=== PATIENT | female | born 1995 | race Caucasian/White ===

== ENCOUNTER 2017-02-07 09:16 | Emergency (ER) | payer BC, MEDICAID ==
--- NOTE | 2017-02-07 11:38 | UC ---
Complaint Female HPI - HPI Summary HPI Summary: 21 female presents with complaints of malodorous vaginal discharge that has been ongoing for the past 2 weeks and has progressively been worsening. She describes the discharge as white, creamy and purulent without itching. Does admit to odor. Admits to dyspareunia but denies post coital bleeding. Admits to some intermittent vague lower abdominal pain that comes and goes for the past couple of years. Denies urinary symptoms and has been going to the bathroom normal. She has been diagnosed with Chlamydia with IUD in place twice in the past. No current control. She is unsure if her current partner has STD's. She is requesting STD testing. She also states she gets BV and yeast infections often however she does not think this is yeast. She does not complain of any itching or irritation. Also states she had a mild non-productive cough that started today. Denies any bleeding, diarrhea, fever/chills, nausea and vomiting. Has never been diagnosed with PID. - History Of Current Complaint Chief Complaint: UCGU Stated Complaint: COUGH CONGESTION/PERSONAL Time Seen by Provider: 02/07/17 10:13 Hx Obtained From: Patient Hx Last Menstrual Period: 01/14/17, due for next period in 3 days, neg preg ?: No Onset/Duration: Sudden Onset Timing: Constant Severity Initially: Mild Severity Currently: Moderate Pain Intensity: 2 Pain Scale Used: 0-10 Numeric Character: Cramping Aggravating Factor(s): Movement, Leyner Alleviating Factor(s): Nothing Associated Signs And Symptoms: Positive: Vaginal Discharge. Negative: Fever, Back Pain, Nausea, Vomiting(# Of Episodes =), Genital Swelling, Genital Blisters Related Hx: Prior STD Hx - Risk Factors Ectopic Risk Factor: IUD Use - Allergies/Home Medications Allergies/Adverse Reactions: Allergies Allergy/AdvReac Type Severity Reaction Status Date / Time No Known Allergies Allergy Verified 02/07/17 09:56 PMH/Surg Hx/FS Hx/Imm Hx Cardiovascular History Of: Reports: Cardiac Disorders - MURMER,BENIGN Respiratory History Of: Reports: Bronchitis - Hx OF LAST x WAS 2013 GI/ History Of: Reports: Kidney Stones - BILATERAL, STD history -Chlamydia Psychological History Of: Comment Only: Anxiety - on celexa, Depression - on celexa - Surgical History Surgical History: Yes Surgery Procedure, Year, and Place: RIGHT KNEE SURGERY/REPAIR 2013, left great toe granuloma removed 08/25/14. lithotripsy; bladder 2016 - Family History Known Family History: Positive: Unknown - Social History Alcohol Use: Occasionally Alcohol Amount: weekends Substance Use Type: Marijuana Substance Use Comment - Amount & Last Used: MARIJUANA VERY RARE Smoking Status (MU): Light Every Day Tobacco Smoker Type: Cigarettes Amount Used/How Often: 1/2 PPD FOR 2 MONTHS Length of Time of Smoking/Using Tobacco: 2 MONTHS Have You Smoked in the Last Year: No Household Exposure Type: Cigarettes - Immunization History Vaccination Up to Date: Yes Review of Systems Constitutional: Negative Skin: Negative Eyes: Negative ENT: Negative Respiratory: Cough Cardiovascular: Negative Gastrointestinal: Abdominal Pain Genitourinary: Other - vaginal discharge Motor: Negative Neurovascular: Negative Musculoskeletal: Negative Neurological: Negative Psychological: Negative All Other Systems Reviewed And Are Negative: Yes Physical Exam Triage Information Reviewed: Yes Appearance: Well-Appearing, No Pain Distress, Well-Nourished Vital Signs: Initial Vital Signs Temp 98.9 F 02/07/17 09:41 Pulse 77 02/07/17 09:41 Resp 20 02/07/17 09:41 BP 124/66 02/07/17 09:41 Pulse Ox 99 02/07/17 09:41 Vital Signs Reviewed: Yes Eyes: Positive: Conjunctiva Clear ENT: Positive: Normal ENT inspection, Hearing grossly normal, Pharynx normal, TMs normal Dental: Negative: Cervical Lymphadenopathy Neck: Positive: Supple, Nontender, No Lymphadenopathy Respiratory: Positive: Chest non-tender, Lungs clear, Normal breath sounds, No respiratory distress, No accessory muscle use. Negative: Respiratory distress, Crackles, Rhonchi, Stridor Cardiovascular: Positive: RRR, No Murmur, Pulses Normal, Brisk Capillary Refill Abdomen Description: Positive: No Organomegaly, Soft, Other: - mild tenderness over uterus/bladder intermittently on palpation. Negative: Bruit, CVA Tenderness (R), CVA Tenderness (L), Distended, Guarding, Peritoneal Signs, Pulsatile Mass Bowel Sounds: Positive: Present Musculoskeletal Exam: Normal Musculoskeletal: Positive: Strength Intact, ROM Intact, No Edema Neurological Exam: Normal Neurological: Positive: Alert Psychological Exam: Normal Skin Exam: Normal UC Physical Exam Vital Signs On Initial Exam: Initial Vitals Temp Pulse Resp BP Pulse Ox 98.9 F 77 20 124/66 99 02/07/17 09:41 02/07/17 09:41 02/07/17 09:41 02/07/17 09:41 02/07/17 09:41 - Genitalia Exam Female Genitourinary: Normal External Exam, Genitalia without Lesions/Masses, Other - vaginal canal with white/yellow mucopurluent discharge, creamy in texture, no odor noted. does not appear to be jade. wall and cervix without erythema. negative strawberry cervix. no cervical motion tenderness. cervix appeared to be slightly open with blood noted, patient is due for menstraul cycle in 3 days. No blood noted otherwise. No adenexal or uterine tenderness on bimanual exam. Complaint Female Dx - Course Course Of Treatment: pelvic exam preformed, STD and Affirm/Trich cultures obtained. Patient did not want blood work at this time and agreed to have complete STD testing and [facility]. Discussed possibility of STD versus BV. Discussed options of waiting for results versus treatment at visit. Agreed to treat for BV at this time and wait for culture results for further/ change of treatment. Patient was educated on resistance to antibiotics for STDs. test obtained and negative. Urinalysis obtained and showed nitrate and blood. Without complaint of symptoms and trace amounts of blood/nitrate will not treat for UTI at this time. Flagyl prescribed and close follow up with OBGYN. No intercorse until symptoms improve and treatment is complete. Will call with culture results when obtained. Spoke with Dr Knutson about treatment plan who agreed. - Differential Dx/Diagnosis Differential Diagnosis/HQI/PQRI: Pelvic Inflammatory Disease, , Sexually Transmitted Disease, Urinary Tract Infection, Other - BV, jade Provider Diagnoses: bacterial vaginosis, vaginal discharge - Physician Notifications Discussed Patient Care With: Dr Knutson Discharge - Discharge Plan Condition: Good Disposition: HOME Prescriptions: Metronidazole [Flagyl 500 MG TAB] 500 mg PO BID #14 tab Patient Education Materials: Bacterial Vaginosis (ED), Sexually Transmitted Diseases (ED) Referrals: Silvia Alvarez MD [Primary Care Provider] - Additional Instructions: Take prescribed medication as directed for the next 7 days. You will hear about culture results in the next couple of days. Depending on results treatment may need to be adjusted or additional treatment will be necessary. While take antibiotic, recommend taking probiotics in between doses. Be sure to keep your appointment with OBGYN for further evaluation, blood work and follow up. If symptoms persist, worsen or do not improve please return or seek medical attention promptly. Avoid sexual intercourse until culture results are obtained and symptoms have improved.
[2017-02-07 12:09] VITALS: BP 114/70
== END 2017-02-07 11:46 | disposition home or self-care (01) ==
LOC: UCCORT 09:16
DX: N76.0 Acute vaginitis (principal); Z32.02 Encounter for pregnancy test, result negative; R01.0 Benign and innocent cardiac murmurs; F41.8 Other specified anxiety disorders; Z11.3 Encounter for screening for infections with a predominantly sexual mode of transmission; Z87.442 Personal history of urinary calculi; F17.210 Nicotine dependence, cigarettes, uncomplicated
CPT/HCPCS: 81003; 84702; 87086; 87480; 87491; 87510; 87591; 87661; 99212; G0463

== ENCOUNTER 2018-03-12 16:59 | Emergency (ER) | payer BC, MEDICAID ==
[2018-03-12 18:08] VITALS: BP 114/65
--- NOTE | 2018-03-12 18:35 | ED ---
GI/ HPI - HPI Summary HPI Summary: 22 yr old female with the complaint of late period and occasional midline cramping. She states she had a period where she bled for more days than usual last month. It ended on February 13. She had been taking oral contraceptives in january for a few weeks only and then stopped them. She usually does not take the pills. Presently she is comfortable and not having pain. No vaginal discharge or bleeding now. She actually feels like she does prior to getting her period. She was afraid she was late for period since she began bleeding February 02 last period but bled late she states almost to February 13. The patient states she has taken three home tests this week that have all been negative. She is 4 years ago. - History of Current Complaint Chief Complaint: UCGU Time Seen by Provider: 03/12/18 18:10 Stated Complaint: ABDOMINAL COMPLAINT Hx Last Menstrual Period: 01/14/17, due for next period in 3 days, neg preg Pain Intensity: 3 - Allergy/Home Medications Allergies/Adverse Reactions: Allergies Allergy/AdvReac Type Severity Reaction Status Date / Time No Known Allergies Allergy Verified 02/07/17 09:56 Home Medications: Home Medications Ibuprofen TAB* [Motrin TAB* 800 MG] 800 mg PO Q6H PRN 03/12/18 [History Confirmed 03/12/18] PMH/Surg Hx/FS Hx/Imm Hx GI History: Reports: Hx Gastroesophageal Reflux Disease - ACID REFLUX CONTROL WITH MEDS History: Reports: Hx Kidney Stones - BILATERAL, STD history -Chlamydia Sensory History: Denies: Hx Contacts or Glasses, Hx Hearing Aid Opthamlomology History: Denies: Hx Contacts or Glasses Psychiatric History: Comment Only: Hx Anxiety - on celexa, Hx Depression - on celexa - Surgical History Surgery Procedure, Year, and Place: RIGHT KNEE SURGERY/REPAIR 2013, left great toe granuloma removed 08/25/14. lithotripsy; bladder 2016. uterine sx Hx Anesthesia Reactions: No Infectious Disease History: Yes Infectious Disease History: Reports: Hx Shingles Denies: Traveled Outside the [place] in Last 30 Days - Family History Known Family History: Positive: Unknown - Social History Alcohol Use: Occasionally Alcohol Amount: weekends Substance Use Type: Reports: Marijuana Substance Use Comment - Amount & Last Used: MARIJUANA VERY RARE Smoking Status (MU): Light Every Day Tobacco Smoker Type: Cigarettes Amount Used/How Often: 1 PPD FOR 2 MONTHS Length of Time of Smoking/Using Tobacco: 2 yrs Have You Smoked in the Last Year: No Review of Systems Constitutional: Negative Negative: Vomiting, Diarrhea, Nausea Positive: other - period off, and some cramping. . Negative: dysuria All Other Systems Reviewed And Are Negative: Yes Physical Exam Triage Information Reviewed: Yes Vital Signs On Initial Exam: Initial Vitals Temp Pulse Resp BP Pulse Ox 99.6 F 73 16 114/65 100 03/12/18 18:00 03/12/18 18:00 03/12/18 18:00 03/12/18 18:00 03/12/18 18:00 Vital Signs Reviewed: Yes Appearance: Positive: Well-Appearing Skin: Positive: Warm, Skin Color Reflects Adequate Perfusion Head/Face: Positive: Normal Head/Face Inspection Eyes: Positive: EOMI ENT: Positive: Normal ENT inspection Neck: Positive: Nontender Respiratory/Lung Sounds: Positive: Clear to Auscultation, Breath Sounds Present Cardiovascular: Positive: RRR. Negative: Murmur Abdomen Description: Positive: Nontender, Soft. Negative: Distended, Guarding Musculoskeletal: Positive: Strength/ROM Intact Neurological: Positive: Sensory/Motor Intact, Alert, Oriented to Person Place, Time, CN Intact II-III Psychiatric: Positive: Normal - Sury Coma Scale Best Eye Response: 4 - Spontaneous Best Motor Response: 6 - Obeys Commands Best Verbal Response: 5 - Oriented Coma Scale Total: 15 Diagnostics - Vital Signs Vital Signs Temp Pulse Resp BP Pulse Ox 03/12/18 18:00 99.6 F 73 16 114/65 100 - Laboratory Lab Results: Lab Results 03/12/18 03/12/18 Range/Units 18:14 18:16 POC Urine Color Yellow POC Urine Clarity Clear POC Urine pH 7.0 (5-9) POC Ur Specif [place] 1.015 (1.010-1.030) POC Urine Protein Negative (Negative) POC Ur Glucose (UA) Negative (Negative) POC Urine Ketones Negative (Negative) POC Urine Blood Negative (Negative) POC Urine Nitrite Negative (Negative) POC Urine Bilirubin Negative (Negative) POC Urine Urobilinogen 0.2 (Negative) POC U Leukocyte Esteras Negative (Negative) POC Ur Test Negative (Negative) Lab Statement: Any lab studies that have been ordered have been reviewed, and results considered in the medical decision making process. GIGU Course/Dx - Course Course Of Treatment: 22 yr old female with period that seems to have been thrown out of sync by taking oral contaceptives irregularly and suddenly stopping them in January. She is comfortable now. recommend she contact her STOCK PLAN ADMINISTRATOR in the morning for follow up. Her HCG and UA are negativehere. She has a benign abdomen on exam. - Diagnoses Provider Diagnoses: Menstrual period late Discharge - Sign-Out/Discharge Documenting (check all that apply): Discharge/Admit/Transfer - Discharge Plan Condition: Good Disposition: HOME Patient Education Materials: Abdominal Pain (ED) Referrals: SORAYA Rojas [Primary Care Provider] - Additional Instructions: You should go to the ER for any fever, chills, pain, new symptoms, further delay of period. You should contact your STOCK PLAN ADMINISTRATOR tomorrow to be seen in follow up as soon as possible for your late/delayed period. - Billing Disposition and Condition Condition: GOOD Disposition: Home
== END 2018-03-12 18:47 | disposition home or self-care (01) ==
LOC: UCCORT 16:59
DX: N92.5 Other specified irregular menstruation (principal); R25.2 Cramp and spasm; F17.210 Nicotine dependence, cigarettes, uncomplicated
CPT/HCPCS: 81003; 84702; 99211; G0463

== ENCOUNTER 2018-06-21 20:10 | Emergency (ER) | payer BC, MEDICAID ==
[2018-06-21 20:29] VITALS: BP 113/70
--- NOTE | 2018-06-21 20:57 | UC ---
Complaint Female HPI - HPI Summary HPI Summary: patient reports 3 months of worsening vaginal odor and discharge states she frequently gets BV - History Of Current Complaint Chief Complaint: UCGU Stated Complaint: PERSONAL Time Seen by Provider: 06/21/18 20:35 Hx Obtained From: Patient Hx Last Menstrual Period: 05/20/18, ending 06/03/18 ?: No Onset/Duration: Gradual Onset, Lasting Weeks - 12, Still Present Timing: Constant Pain Intensity: 1 Pain Scale Used: 0-10 Numeric Aggravating Factor(s): Nothing Alleviating Factor(s): Nothing Associated Signs And Symptoms: Positive: Vaginal Discharge. Negative: Nausea, Vomiting(# Of Episodes =), Genital Swelling, Genital Blisters, Retained Foregin Body (Specify) Related Hx: - 1, Para - 1 - Allergies/Home Medications Allergies/Adverse Reactions: Allergies Allergy/AdvReac Type Severity Reaction Status Date / Time No Known Allergies Allergy Verified 02/07/17 09:56 Home Medications: Home Medications Naproxen Sodium [Aleve] 440 mg PO DAILY PRN 06/21/18 [History Confirmed 06/21/18 ] l-Norgest/E.estradiol-E.estrad [Ashlyna 0.15-0.03-0.01 mg Tab] 1 tab PO DAILY [History Confirmed 06/21/18] PMH/Surg Hx/FS Hx/Imm Hx Previously Healthy: Yes - Surgical History Surgical History: Yes Surgery Procedure, Year, and Place: RIGHT KNEE SURGERY/REPAIR 2013, left great toe granuloma removed 08/25/14. lithotripsy; bladder 2015. uterine sx - Family History Known Family History: Positive: Unknown - Social History Occupation: Works From/At Home Lives: With Family Alcohol Use: Occasionally Alcohol Amount: weekends Substance Use Type: Marijuana Substance Use Comment - Amount & Last Used: MARIJUANA VERY RARE Smoking Status (MU): Light Every Day Tobacco Smoker Type: Cigarettes Amount Used/How Often: 1 ppd Length of Time of Smoking/Using Tobacco: 2 yrs Have You Smoked in the Last Year: No Household Exposure Type: Cigarettes - Immunization History Vaccination Up to Date: Yes Review of Systems Constitutional: Negative Skin: Negative Eyes: Negative ENT: Negative Respiratory: Negative Cardiovascular: Negative Gastrointestinal: Negative Genitourinary: Vaginal/Penile Discharge Motor: Negative Neurovascular: Negative Musculoskeletal: Negative Neurological: Negative Psychological: Negative Is Patient Immunocompromised?: No All Other Systems Reviewed And Are Negative: Yes Physical Exam Triage Information Reviewed: Yes Appearance: Well-Appearing, No Pain Distress, Well-Nourished Vital Signs: Initial Vital Signs Temp 98.8 F 06/21/18 20:20 Pulse 72 06/21/18 20:20 Resp 20 06/21/18 20:20 BP 113/70 06/21/18 20:20 Pulse Ox 99 06/21/18 20:20 Vital Signs Reviewed: Yes Eye Exam: Normal Eyes: Positive: Conjunctiva Clear ENT Exam: Normal ENT: Positive: Normal ENT inspection, Hearing grossly normal. Negative: Trismus , Muffled voice, Hoarse voice Dental Exam: Normal Neck exam: Normal Neck: Positive: Supple, Nontender Respiratory Exam: Normal Respiratory: Positive: Chest non-tender, No respiratory distress, No accessory muscle use Cardiovascular Exam: Normal Cardiovascular: Positive: RRR, Pulses Normal, Brisk Capillary Refill Abdominal Exam: Normal Abdomen Description: Positive: Nontender, No Organomegaly, Soft. Negative: CVA Tenderness (R), McBurney's Point Tenderness, Peritoneal Signs Bowel Sounds: Positive: Present Pelvic Exam: Positive: External Exam Normal, Speculum Exam Normal, No Cerv. Motion Tender, No Masses, Discharge - thick white. Negative: Tender w/ Cervical Motion, Tender Adnexa, Tender Uterus Musculoskeletal Exam: Normal Musculoskeletal: Positive: Strength Intact, ROM Intact, No Edema Neurological Exam: Normal Neurological: Positive: Alert, Muscle Tone Normal Psychological Exam: Normal Skin Exam: Normal Complaint Female Dx - Course Course Of Treatment: lab studies for STD screening--flagyl and 1 diflucan to use prn, follow with pcp - Differential Dx/Diagnosis Provider Diagnoses: BV, STD screening, nicotine dependant Discharge - Sign-Out/Discharge Documenting (check all that apply): Patient Departure All imaging exams completed and their final reports reviewed: No Studies - Discharge Plan Condition: Stable Disposition: HOME Prescriptions: Fluconazole [Diflucan 150 MG (NF)] 150 mg PO ONCE #1 tab metroNIDAZOLE [Flagyl] 500 mg PO BID #13 tablet Patient Education Materials: Bacterial Vaginosis (ED) Referrals: SORAYA Rojas [Medical Doctor] - If Needed - Billing Disposition and Condition Condition: STABLE Disposition: Home
[2018-06-21] MEDS ORDERED: metroNIDAZOLE TAB* 250 MG PO ONE (21:17)
--- NOTE | 2018-06-23 08:07 | UC ---
- Progress Note Progress Note: RN to call pt re results as available this morning, including Not Immune Hep B surf AB. F/u PCP this week. Seek medical attention for worse or new problems in the meantime. Discharge - Sign-Out/Discharge Documenting (check all that apply): Post-Discharge Follow Up All imaging exams completed and their final reports reviewed: No Studies - Discharge Plan Condition: Stable Disposition: HOME Prescriptions: Fluconazole [Diflucan 150 MG (NF)] 150 mg PO ONCE #1 tab metroNIDAZOLE [Flagyl] 500 mg PO BID #13 tablet Patient Education Materials: Bacterial Vaginosis (ED) Referrals: SORAYA Rojas [Medical Doctor] - If Needed - Billing Disposition and Condition Condition: STABLE Disposition: Home
== END 2018-06-21 21:42 | disposition home or self-care (01) ==
LOC: UCCORT 20:10
CPT/HCPCS: 36415; 81003; 84702; 86592; 86703; 86706; 86803; 87480; 87491; 87510; 87591; 87661; 99212; A9270-GY; G0463

== ENCOUNTER 2018-07-13 10:41 | Emergency (ER) | payer BC, MEDICAID ==
--- NOTE | 2018-07-15 12:59 | UC ---
Discharge - Sign-Out/Discharge Documenting (check all that apply): Post-Discharge Follow Up All imaging exams completed and their final reports reviewed: No Studies - Discharge Plan Disposition: LEFT WITHOUT BEING SEEN Referrals: No Primary Care Phys,NOPCP [Primary Care Provider] - - Billing Disposition and Condition Disposition: Left Without Being Seen
== END 2018-07-13 11:38 | disposition left against medical advice (07) ==
LOC: UCCORT 10:41
DX: L98.9 Disorder of the skin and subcutaneous tissue, unspecified (principal); Z53.21 Procedure and treatment not carried out due to patient leaving prior to being seen by health care provider

== ENCOUNTER 2018-08-04 13:14 | Emergency (ER) | payer BC, MEDICAID ==
[2018-08-04 13:57] VITALS: BP 127/69
[2018-08-04] MEDS ORDERED: Albuterol 2.5 MG/3 ML NEB.SOL* (0.083%) INH ONE (14:27)
--- NOTE | 2018-08-04 14:27 | UC ---
UC General HPI - HPI Summary HPI Summary: pt c/o a 6 week hx cough, chest congestion and wheezing. began as a cold but now feels much worse. no hx asthma or fever but feels fatigued and low energy. cough worse at night. + smoker. also c/o a red circular rash to L inner ankle that is very itchy and was scaley at onset. rash x 3 months. she has self tx with clortrimazole, peroxide, alcohol, neosporin and lotions with no relief - History of Current Complaint Chief Complaint: UCRespiratory Stated Complaint: COUGH, CHEST CONGESTION Time Seen by Provider: 08/04/18 14:16 Hx Obtained From: Patient Hx Last Menstrual Period: 3 weeks ago Pain Intensity: 0 Associated Signs & Symptoms: Positive: Cough, SOB, Wheezing. Negative: Chest Pain, Fever - Allergy/Home Medications Allergies/Adverse Reactions: Allergies Allergy/AdvReac Type Severity Reaction Status Date / Time No Known Allergies Allergy Verified 08/04/18 13:50 Home Medications: Home Medications Acetaminophen [Acetaminophen Extra Strength] 1,000 mg PO Q4H PRN 08/04/18 [ History Confirmed 08/04/18] PMH/Surg Hx/FS Hx/Imm Hx Psychological History: Anxiety, Depression - Surgical History Surgical History: Yes Surgery Procedure, Year, and Place: RIGHT KNEE SURGERY/REPAIR 2013, left great toe granuloma removed 08/25/14. lithotripsy; bladder 2016. uterine sx - Family History Known Family History: Positive: Unknown - Social History Occupation: Employed Full-time Alcohol Use: Occasionally Alcohol Amount: weekends Substance Use Type: Marijuana Substance Use Comment - Amount & Last Used: daily Smoking Status (MU): Heavy Every Day Tobacco Smoker Type: Cigarettes Amount Used/How Often: 1 ppd Length of Time of Smoking/Using Tobacco: 2 yrs Have You Smoked in the Last Year: No Household Exposure Type: Cigarettes - Immunization History Vaccination Up to Date: Yes Review of Systems Constitutional: Negative Skin: Rash Eyes: Negative ENT: Negative Respiratory: Shortness Of Breath, Cough Cardiovascular: Negative Gastrointestinal: Negative Genitourinary: Negative Motor: Negative Neurovascular: Negative Musculoskeletal: Negative Neurological: Negative Psychological: Negative Is Patient Immunocompromised?: No All Other Systems Reviewed And Are Negative: Yes Physical Exam Triage Information Reviewed: Yes Appearance: Well-Appearing Vital Signs: Initial Vital Signs Temp 98.5 F 08/04/18 13:52 Pulse 72 08/04/18 13:52 Resp 18 08/04/18 13:52 BP 127/69 08/04/18 13:52 Pulse Ox 98 08/04/18 13:52 Vital Signs Reviewed: Yes Eyes: Positive: Conjunctiva Clear ENT: Positive: Pharynx normal, TMs normal. Negative: Nasal congestion, Nasal drainage Neck: Positive: Supple, Nontender, No Lymphadenopathy Respiratory: Positive: No respiratory distress, Decreased breath sounds, Wheezing Cardiovascular: Positive: RRR, No Murmur Abdomen Description: Positive: Nontender, No Organomegaly, Soft Bowel Sounds: Positive: Present Musculoskeletal: Positive: ROM Intact, No Edema Neurological: Positive: Alert Psychological: Positive: Age Appropriate Behavior Skin Exam: Normal, Other - 6cm circular red rash L inner ankle area with scaling on edges. Diagnostics - Radiology No standard instances Radiology Interpretation Completed By: Radiologist - cxr=NO ACTIVE CARDIOPULMONARY DISEASE. Re-Evaluation - Re-Evaluation First Eval Re-Evaluation Time: 15:02 Change: Improved - no wheezing post tx. Course/Dx - Course Course Of Treatment: rash c/w tinea, no concern for secondary bacterial infection. cxr=nad - Differential Dx - Multi-Symptom Provider Diagnoses: Tinea corporis L ankle area. Bronchitis Discharge - Sign-Out/Discharge Documenting (check all that apply): Patient Departure All imaging exams completed and their final reports reviewed: Yes - Discharge Plan Condition: Stable Disposition: HOME Prescriptions: Albuterol HFA INHALER* [Ventolin HFA Inhaler*] 2 puff INH Q6H #1 mdi Ketoconazole 2 % CREAM (NF) [Nizoral 2% CREAM (NF)] 1 applic TOPICAL BID 30 Days #60 gm predniSONE [Prednisone 20 MG TAB] 40 mg PO DAILY 3 Days #6 tablet Patient Education Materials: Acute Bronchitis (ED), Skin Yeast Infection (ED) Referrals: Rashad Pedroza PA [Primary Care Provider] - 7 Days - Billing Disposition and Condition Condition: STABLE Disposition: Home - Attestation Statements Provider Attestation: Per institutional requirements, I have reviewed the chart, however, I was not consulted specifically or made aware of this patient by the midlevel provider. I did not personally evaluate, interact with , or disposition this patient.
--- NOTE | 2018-08-04 14:51 | RAD ---
HISTORY: 6 weeks, sob, cough COMPARISONS: None VIEWS: 4: Frontal dual-energy and lateral views of the chest. FINDINGS: CARDIOMEDIASTINAL SILHOUETTE: The cardiomediastinal silhouette is normal. FRANK: The frank are normal. PLEURA: The costophrenic angles are sharp. No pleural abnormalities are noted. LUNG PARENCHYMA: The lungs are clear. ABDOMEN: The upper abdomen is clear. There is no subphrenic gas. BONES AND SOFT TISSUES: No bone or soft tissue abnormalities are noted. OTHER: None. IMPRESSION: NO ACTIVE CARDIOPULMONARY DISEASE.
== END 2018-08-04 15:10 | disposition home or self-care (01) ==
LOC: UCCORT 13:14
DX: J40 Bronchitis, not specified as acute or chronic (principal); B35.4 Tinea corporis; F17.210 Nicotine dependence, cigarettes, uncomplicated
CPT/HCPCS: 71046; 99212; G0463

== ENCOUNTER 2018-12-25 14:11 | Emergency (ER) | payer BC, MEDICAID ==
[2018-12-25 14:47] VITALS: BP 123/66
--- NOTE | 2018-12-25 14:59 | UC ---
Ear Complaint HPI - HPI Summary HPI Summary: Pt presents with c/o sudden onset of left ear pain and discharge X 2 days. - History of Current Complaint Chief Complaint: UCEar Stated Complaint: LEFT EAR CONCERN Time Seen by Provider: 12/25/18 14:53 Hx Obtained From: Patient Hx Last Menstrual Period: 3 weeks ago ?: Yes Onset/Duration: Sudden Onset, Lasting Days, Still Present Severity Initially: Mild Severity Currently: Moderate Pain Intensity: 7 Associated Signs/Symptoms: Positive: Discharge, Hearing Loss, URI Symptoms - Allergies/Home Medications Allergies/Adverse Reactions: Allergies Allergy/AdvReac Type Severity Reaction Status Date / Time No Known Allergies Allergy Verified 12/25/18 14:36 Home Medications: Home Medications Acetaminophen PED LIQ* [Tylenol PED LIQ UDC*] 15 mg PO Q6H PRN 12/25/18 [ History Confirmed 12/25/18] Citalopram TAB* [Celexa TAB*] 20 mg PO DAILY 12/25/18 [History Confirmed ] PMH/Surg Hx/FS Hx/Imm Hx Previously Healthy: Yes - Surgical History Surgical History: Yes Surgery Procedure, Year, and Place: RIGHT KNEE SURGERY/REPAIR 2013, left great toe granuloma removed 08/25/14. lithotripsy; bladder 2016. uterine sx - Family History Known Family History: Positive: Unknown - Social History Occupation: Employed Full-time Lives: With Family Alcohol Use: None Alcohol Amount: weekends Substance Use Type: Marijuana Substance Use Comment - Amount & Last Used: hx of Smoking Status (MU): Former Smoker Type: Cigarettes Amount Used/How Often: 1 ppd Length of Time of Smoking/Using Tobacco: 2 yrs Have You Smoked in the Last Year: No When Did the Patient Quit Smoking/Using Tobacco: 16 wks ago Household Exposure Type: Cigarettes - Immunization History Vaccination Up to Date: Yes Review of Systems All Other Systems Reviewed And Are Negative: Yes Constitutional: Positive: Negative Skin: Positive: Negative Eyes: Positive: Negative ENT: Positive: Ear Ache, Sinus Congestion Respiratory: Positive: Cough Cardiovascular: Positive: Negative Gastrointestinal: Positive: Negative Genitourinary: Positive: Negative Motor: Positive: Negative Neurovascular: Positive: Negative Musculoskeletal: Positive: Negative Neurological: Positive: Negative Psychological: Positive: Negative Is Patient Immunocompromised?: No Physical Exam Triage Information Reviewed: Yes Appearance: Well-Appearing Vital Signs: Initial Vital Signs Temp 98.5 F 03/22/19 14:40 Pulse 81 12/25/18 14:40 Resp 18 12/25/18 14:40 BP 123/66 12/25/18 14:40 Pulse Ox 100 12/25/18 14:40 Vital Signs Reviewed: Yes Eye Exam: Normal ENT: Positive: TM bulging - left with serous drainage in ear canal Dental Exam: Normal Neck exam: Normal Respiratory Exam: Normal Cardiovascular Exam: Normal Musculoskeletal Exam: Normal Neurological Exam: Normal Psychological Exam: Normal Skin Exam: Normal Ear Complaint Course/Dx - Differential Dx/Diagnosis Differential Diagnosis/HQI/PQRI: Otitis Media, URI Provider Diagnosis: Otitis media of left ear Discharge - Sign-Out/Discharge Documenting (check all that apply): Patient Departure All imaging exams completed and their final reports reviewed: No Studies - Discharge Plan Condition: Stable Disposition: HOME Prescriptions: Acetaminophen TAB* [Tylenol TAB*] 650 mg PO Q6H PRN #28 tab PRN Reason: Pain Amoxicillin PO (*) [Amoxicillin 500 MG CAP*] 500 mg PO Q12H #20 cap Patient Education Materials: Ear Infection (ED) Referrals: Venice Calvert MD [Primary Care Provider] - If Needed - Billing Disposition and Condition Condition: STABLE Disposition: Home
== END 2018-12-25 15:05 | disposition home or self-care (01) ==
LOC: UCCORT 14:11
DX: H66.92 Otitis media, unspecified, left ear (principal); Z87.891 Personal history of nicotine dependence
CPT/HCPCS: 99212; G0463

== ENCOUNTER 2019-07-27 10:50 | Emergency (ER) | payer BC, MEDICAID ==
--- OUTSIDE RECORDS SUMMARY | 2019-07-27 11:21 | XMS REPORT | Continuity of Care Document ---
:1995 External Reference #:[id number] Author Name Ellen Arce MD, PHD Address [address] [place] [address], [address] [place] [id number] Care Team Providers Name Role Phone Ellen Arce MD, PHD - Family Care Team Information Outbound Sales Consultant Medicine Problems Active Problems Provider Date Arthralgia of the lower leg Malcom Mckee MD Onset: 06/19/2011 Aftercare, Orthopedic Other Tylor Nevarez, D.O. Onset: 08/16/2014 Closed traumatic dislocation of Magdaleno Kendall M.D. Onset: 08/11/2015 patellofemoral joint Chondromalacia of patella Magdaleno Kendall M.D. Onset: 08/29/2015 Gestation period, 35 weeks Ellen Arce MD, PHD Onset: 04/13/2019 Tobacco user Ellen Arce MD, PHD Onset: 04/13/2019 Moderate recurrent major depression Ellen Arce MD, PHD Onset: 2018 Anxiety state Ellen Arce MD, PHD Onset: 04/13/2019 36 weeks gestation of Ellen Arce MD, PHD Onset: 04/20/2019 Herpesviral vesicular dermatitis Ellen Arce MD, PHD Onset: 07/06/2019 Unspecified disorders of Ellen Arce MD, PHD Onset: 07/06/2019 Encounter for routine follow-up Ellen Arce MD, PHD Onset: Long-term current use of hormonal Ellen Arce MD, PHD Onset: 07/06/2019 contraceptive Headache Ellen Arce MD, PHD Onset: 07/06/2019 Social History Type Date Description Comments Sex Unknown Tobacco Use Start: Unknown Never Smoked Cigarettes Smoking Status Reviewed: 07/06/19 Never Smoked Cigarettes ETOH Use Denies alcohol use Tobacco Use Start: Unknown quit 2 weeks ago Recreational Drug Use Current Drug User Allergies, Adverse Reactions, Alerts Active Allergies Reaction Severity Comments Date No Known Drug Allergy 06/19/2011 Medications Active Medications SIG Qnty Indications Ordering Date Provider L-Lysine 1 by mouth every 90caps [place], 07/06/2019 500mg day MD Ellen, Capsules PHD Citalopram 1.5 by mouth every 120tabs [place], 07/06/2019 Hydrobromide day MD Ellen, 20mg PHD Tablets Buspirone HCL 1/2-1 tab by mouth 90tabs F41.9 [place], 07/06/2019 10mg three times a day MD Ellen, Tablets after meals as PHD needed Prenaissance Plus 2 tab by mouth 180caps Z39.2 [place], 07/06/2019 every day MD Ellen, 28-1-250mg Capsules PHD Breast Pump to use every 2-4 1units [place], 05/28/2019 Misc hours as needed. MD Ellen, PHD Docusate Sodium 1 cap by mouth 60caps K59.00 [place], 03/10/2019 100mg twice a day MD Ellen, Capsules constipation PHD D3 Maximum Strength 1 cap by mouth 90caps F41.9 [place], 02/24/2019 every day with food MD Ellen, 5000Unit Capsules PHD B12 Fast Dissolve 1 tab by mouth 90tabs F41.9 [place], 02/24/2019 every day MD Ellen, 5000mcg Tablets PHD Dispers Acetaminophen Extra 2 tablets by mouth Unknown Strength every 4 hours as 500mg needed Tablets History Medications Citalopram 2 by mouth every 60tabs Ellen Arce, 06/08/2019 - Hydrobromide vamsi LARA, PHD 07/06/2019 20mg Tablets Amoxicillin 1 tab by mouth 14caps J02.0 Ellen Arce, 03/10/2019 - 500mg twice a day , PHD Unknown Capsules Silvadene apply to affected 25gm Ellen Arce, 02/26/2019 - 1% Cream area every day as , PHD 07/06/2019 needed Nac 600 1 cap by mouth 90caps F41.9 Ellen Arce, 02/24/2019 - 600mg Capsules three times a day , PHD 07/06/2019 after meals Immunizations CPT Code Status Date Vaccine Lot # [id number] Given 07/06/2019 Influenza Virus Vaccine, Quadrivalent, 36 Mos+, [id number] Given 03/30/2019 Tdap injection [id number] Given 02/24/2019 Rho(D) Immune Globulin (Human) [id number] Vital Signs Date Vital Result Comment 07/06/2019 1:00pm BP Systolic 116 mmHg BP Diastolic 80 mmHg Body Temperature 97.5 F Heart Rate 82 /min Respiratory Rate 16 /min Height 67 inches 5'7" Weight 180.00 lb BMI (Body Mass Index) 28.2 kg/m2 BSA (Body Surface Area) 1.93 m2 [place] body weight in kilograms 61 kg O2 % BldC Oximetry 98 % 06/08/2019 2:13pm BP Systolic 124 mmHg BP Diastolic 85 mmHg Body Temperature 98.9 F Heart Rate 91 /min Respiratory Rate 16 /min Height 67 inches 5'7" Weight 178.00 lb BMI (Body Mass Index) 27.9 kg/m2 BSA (Body Surface Area) 1.92 m2 [place] body weight in kilograms 61 kg O2 % BldC Oximetry 97 % Results Test Date Facility Test Result H/L Range Note Urine Culture 06/08/2019 [facility] Urine Culture URETHRAL ESME [address] [place] [address] [phone] Quantity 10,000 - 50,000 <SEE NOTE> 2 Ua RFX Micro & Culture 06/08/2019 [facility] Urine Color YELLOW Yellow II [address] [place] [address] [phone] Urine Clarity CLEAR Clear Urine Glucose - Dipstick NEGATIVE mg/dL Negative Urine Bilirubin - Dipstick NEGATIVE Negative Urine Ketone NEGATIVE mg/dL Negative Urine Specific [place] 1.010 Normal 1.010-1.030 Urine Blood LARGE Abnormal 0-2 Urine PH 6.0 Low 6.5-7.5 Urine Protein - Dipstick NEGATIVE mg/dL Negative Urine Urobilinogen - Dipstick 0.2 E.U./dL Normal 0.2-1.0 Urine Nitrite - Dipstick NEGATIVE Negative Urine Leuk Esterase SMALL Abnormal Negative Urine RBC 2-5 rbc/hpf 0-2 Urine WBC 0-2 wbc/hpf 0-7 Urine Epithelial Cells VERY FEW /lpf None Seen Protein/Creatinine 06/08/2019 [facility] Creatinine,Urine 66.4 Not Ratio,Urine [address] mg/dL Estab. [place], [place] [id number] [phone] Protein,Total,Urine 6.0 mg/dL Not Estab. Protein/Creatinine Ratio 90 MG/GCRE 0-200 3 Chlmaydia/GC/Trichomonas 06/08/2019 [facility] Chlamydia NEGATIVE Negative PCR [address] trachomatis, [place] [address] PCR [phone] Neisseria gonorrhoeae, PCR NEGATIVE Negative 4 Trichomonas vaginalis PCR NEGATIVE Negative Specimen Type: Genital Genital Culture W/ 06/08/2019 [facility] Gram Stain GRAM STAIN INDET [address] <SEE NOTE> [place], [place] [id number] [phone] Gram Stain FEW GRAM POSITIV <SEE NOTE> 6 Genital Culture GENITAL ESME Hemoglobin/Hematocrit 05/24/2019 [facility] Hemoglobin 11.2 Low 11.6-15.[address] gm/dL [place], [place] [id number] [phone] Hematocrit 33.1 % Low 36.0-46.1 Laboratory test 05/23/2019 [facility] Screen NEGATIVE Normal [address] [place] [address] [phone] CBC 05/23/2019 [facility] White Blood 18.8 K/uL High 3.1-[address] Count .7 [place] [address] [phone] Red Blood Count 3.98 M/uL Normal 3.90-5.40 Hemoglobin 12.5 gm/dL Normal 11.6-15.8 Hematocrit 37.6 % Normal 36.0-46.1 Mean Cell Volume 94.5 fl Normal 80.9-99.0 Mean Corpuscular HGB 31.4 pg Normal 25.9-32.7 Mean Corpuscular HGB Conc 33.2 g/dL Normal 30.8-34.3 Platelet Count 217 K/uL Normal 155-360 Red Cell Distri Width SD 46.2 fl Normal 36-47 Red Cell Distri Width %CV 13.4 % Normal 11.7-14.4 Mean Platelet Volume 11.2 fl Normal 8.9-12.4 NRBC % 0.0 /100WBC < 10/ 100 WBC Type And Screen 05/23/2019 [facility] Patient Blood Type O NEG Normal [address] [place] [address] [phone] Antibody Screen Negative Normal Negative Laboratory 05/23/2019 [facility] Treponema Negative Negative 9 test finding [address] [place] [address] [place] [phone] Laboratory 05/22/2019 [facility] Negative (Negative) 10, 11 test finding [address] [place] [address] [place] [phone] Laboratory 05/20/2019 [facility] Negative (Negative) 12, 13 test finding [address] [place] [address] [place] [phone] Urine Dipstick 05/20/2019 [facility] Ua Color yellow Yellow Ua Clarity clear Clear Ua Leuko Negative Negative Ua Nitrite negative Negative Ua Urobilinogen 0.2 0.2 - 1.0 E.U./dL Ua Protein negative Negative Ua PH 6.5 6.5-7.5 Ua Blood negative Negative Ua Specific [place] 1.015 1.010-1.030 Ua Ketones negative Negative Ua Bilirubin negative Negative Ua Glucose negative Negative Urine Dipstick 05/17/2019 [facility] Inhouse Ua Color Yellow Yellow Ua Clarity Clear Clear Ua Leuko Negative Negative Ua Nitrite Negative Negative Ua Urobilinogen 0.2 0.2 - 1.0 E.U./dL Ua Protein Negative Negative Ua PH 6.5 6.5-7.5 Ua Blood Negative Negative Ua Specific [place] 1.020 1.010-1.030 Ua Ketones Negative Negative Ua Bilirubin Negative Negative Ua Glucose Negative Negative Ua RFX Micro & Culture 05/12/2019 [facility] Urine Color YELLOW Yellow 14 II [address] [place], [place] [id number] [phone] Urine Clarity CLEAR Clear Urine Glucose - Dipstick NEGATIVE mg/dL Negative Urine Bilirubin - Dipstick NEGATIVE Negative Urine Ketone NEGATIVE mg/dL Negative Urine Specific [place] 1.010 Normal 1.010-1.030 Urine Blood NEGATIVE Negative Urine PH 6.0 Low 6.5-7.5 Urine Protein - Dipstick NEGATIVE mg/dL Negative Urine Urobilinogen - Dipstick 0.2 E.U./dL Normal 0.2-1.0 Urine Nitrite - Dipstick NEGATIVE Negative Urine Leuk Esterase NEGATIVE Negative Source: URINE, CLEAN CAT <SEE NOTE> 15 Laboratory test 05/12/2019 [facility] Negative (Negative) [address] [place] [address] [place] [phone] Urine Dipstick 05/04/2019 [facility] Inhouse Ua Color yellow Yellow Ua Clarity clear Clear Ua Leuko negative Negative Ua Nitrite negative Negative Ua Urobilinogen 0.2 0.2 - 1.0 E.U./dL Ua Protein negative Negative Ua PH 7.0 6.5-7.5 Ua Blood negative Negative Ua Specific [place] 1.015 1.010-1.030 Ua Ketones negative Negative Ua Bilirubin negative Negative Ua Glucose negative Negative Urine Dipstick 04/27/2019 [facility] Inhouse Ua Color Yellow Yellow Ua Clarity Clear Clear Ua Leuko Negative Negative Ua Nitrite Negative Negative Ua Urobilinogen Negative Low 0.2 - 1.0 E.U./dL Ua Protein Negative Negative Ua PH 7.5 6.5-7.5 Ua Blood Negative Negative Ua Specific [place] 1.010 1.010-1.030 Ua Ketones Negative Negative Ua Bilirubin Negative Negative Ua Glucose Negative Negative Urine Dipstick 04/20/2019 [facility] Inhouse Ua Color Yellow Yellow Ua Clarity Clear Clear Ua Leuko Negative Negative Ua Nitrite Negative Negative Ua Urobilinogen Negative Low 0.2 - 1.0 E.U./dL Ua Protein Negative Negative Ua PH 7.5 6.5-7.5 Ua Blood Negative Negative Ua Specific [place] 1.015 1.010-1.030 Ua Ketones Negative Negative Ua Bilirubin Negative Negative Ua Glucose Negative Negative Urine Dipstick 04/13/2019 [facility] Inhouse Ua Color yellow Yellow Ua Clarity clear Clear Ua Leuko negative Negative Ua Nitrite negative Negative Ua Urobilinogen 0.2 0.2 - 1.0 E.U./dL Ua Protein negative Negative Ua PH 7.0 6.5-7.5 Ua Blood negative Negative Ua Specific [place] 1.010 1.010-1.030 Ua Ketones negative Negative Ua Bilirubin negative Negative Ua Glucose negative Negative Ua RFX Micro & Culture 04/13/2019 [facility] Urine Color YELLOW Yellow [address] [place], [place] [id number] [phone] Urine Clarity CLEAR Clear Urine Glucose - Dipstick NEGATIVE mg/dL Negative Urine Bilirubin - Dipstick NEGATIVE Negative Urine Ketone NEGATIVE mg/dL Negative Urine Specific [place] <= 1.005 Low 1.010-1.030 Urine Blood NEGATIVE Negative Urine PH 6.5 Normal 6.5-7.5 Urine Protein - Dipstick NEGATIVE mg/dL Negative Urine Urobilinogen - Dipstick 0.2 E.U./dL Normal 0.2-1.0 Urine Nitrite - Dipstick NEGATIVE Negative Urine Leuk Esterase NEGATIVE Negative Source: URINE, CLEAN CAT <SEE NOTE> 18 Urine Culture 04/13/2019 [facility] Urine Culture MIXED URETHRAL F [address] <SEE NOTE> [place] [address] [phone] Quantity < 10,000 CFU/mL Laboratory test 04/13/2019 [facility] Vaginal Strep NO GROUP B [address] Screen STREP <[place] [address] NOTE> [phone] Urine Dipstick 03/30/2019 [facility] Ua Color Yellow Yellow Ua Clarity Clear Clear Ua Leuko Negative Negative Ua Nitrite Negative Negative Ua Urobilinogen Negative Low 0.2 - 1.0 E.U./dL Ua Protein Trace Negative Ua PH 6.5 6.5-7.5 Ua Blood Negative Negative Ua Specific [place] 1.020 1.010-1.030 Ua Ketones Negative Negative Ua Bilirubin Negative Negative Ua Glucose Negative Negative Urine Dipstick 03/10/2019 [facility] Ua Color yellow Yellow Ua Clarity clear Clear Ua Leuko negative Negative Ua Nitrite negative Negative Ua Urobilinogen 0.2 0.2 - 1.0 E.U./dL Ua Protein negative Negative Ua PH 7.5 6.5-7.5 Ua Blood negative Negative Ua Specific [place] 1.030 1.010-1.030 Ua Ketones negative Negative Ua Bilirubin negative Negative Ua Glucose negative Negative Laboratory 02/24/2019 [facility] Treponema Negative Negative 21, 22 test finding [address] [place] [address] [place] [phone] HIV Screen 4TH 02/24/2019 [facility] HIV Screen Non Non [address] 4th [place] [address] Generation [phone] wRfx Glucose,1 HR 02/24/2019 [facility] 1 HR 102 mg/dL -138 [address]ucola [address] Glucose,[place] [address] Gluc[place] [phone] 1 Hour Urine Glucose NEGATIVE % Negative 1 Hour Urine Ketone NEGATIVE Negative Laboratory test 02/24/2019 [facility] Thyroid 1.76 Normal 0.30-4.[address] Stim uIU/[place] [address] Hormone [phone] Free T4 0.79 ng/dL Normal 0.76-1.46 Vitamin D,25-Hydroxy 30.4 ng/mL 30.0-100.0 25 Urine Culture 02/24/2019 [facility] Urine Culture URETHRAL ESME [address] [place], [place] [address] [phone] Quantity 10,000 - 50,000 <SEE NOTE> 26 Ua RFX Micro & Culture 02/24/2019 [facility] Urine Color YELLOW Yellow II [address] [place], [place] [id number] [phone] Urine Clarity CLEAR Clear Urine Glucose - Dipstick NEGATIVE mg/dL Negative Urine Bilirubin - Dipstick NEGATIVE Negative Urine Ketone NEGATIVE mg/dL Negative Urine Specific [place] 1.015 Normal 1.010-1.030 Urine Blood NEGATIVE Negative Urine PH 7.0 Normal 6.5-7.5 Urine Protein - Dipstick NEGATIVE mg/dL Negative Urine Urobilinogen - Dipstick 0.2 E.U./dL Normal 0.2-1.0 Urine Nitrite - Dipstick NEGATIVE Negative Urine Leuk Esterase NEGATIVE Negative Source: URINE, CLEAN CAT <SEE NOTE> 27 Genital Culture W/ 02/24/2019 [facility] Gram Stain GRAM STAIN INDIC 28 Gram Stain [address] <SEE NOTE> [place], [place] [id number] [phone] Gram Stain MODERATE GR POS. <SEE NOTE> 29 Gram Stain NO WHITE BLOOD C <SEE NOTE> 30 Genital Culture GENITAL ESME Chlmaydia/GC/Trichomonas 02/24/2019 [facility] Chlamydia NEGATIVE Negative PCR [address] trachomatis, [place] [address] PCR [phone] Neisseria gonorrhoeae, PCR NEGATIVE Negative 31 Trichomonas vaginalis PCR NEGATIVE Negative HSV I & II Igg 02/24/2019 [facility] HSV II,Igg,Type <0.91 0.00-0.90 32 Type Specific [address] [place] [place] [address] [phone] HSV Type I Specific Igg 14.10 index High 0.00-0.90 33 Urine Dipstick 02/24/2019 [facility] Ua Color negative Yellow Ua Clarity clear Clear Ua Leuko negative Negative Ua Nitrite negative Negative Ua Urobilinogen 0.2 0.2 - 1.0 E.U./dL Ua Protein negatuve Negative Ua PH 6.5 6.5-7.5 Ua Blood negative Negative Ua Specific [place] 1.015 1.010-1.030 Ua Ketones negative Negative Ua Bilirubin negative Negative Ua Glucose negative Negative 1 R30.0 R35.0 N76.0 2 10,000 - 50,000 CFU/mL 3 INFCE Result Units: mg/g creat Performed at: - [facility] [address] [id number] Cryptanalyst: Amy Gottlieb MD, Phone: [phone] 4 A negative result for either C. trachomatis and/or N. gonorrhoeae does not preclued an infection because results are dependent on adequate specimen collection, absence of inhibitors, and sufficient DNA to be detected. 5 GRAM STAIN INDETERMINANT FOR BACTERIAL VAGINOSIS 6 FEW GRAM POSITIVE COCCI 7 DELIVERY 8 Blood Type O NEG 9 Performed at: - [facility] [id number] Cryptanalyst: Bennie Garcia MD, Phone: [phone] 10 41 WEEKS SENT BY TAWNYA ROMO 11 In very rare cases when a sample is taken 12 hours after a rupture, a FALSE NEGATIVE result may occur do to obstruction of the rupture by the fetus or or resealing of the aminiotic sac. Limitations of the test: Bleeding, placenta previa or performing digital exams prior to sampling can lead to inaccurate test results. Method: Immunochromatography 12 40 WEEKS IN LABOR 13 In very rare cases when a sample is taken 12 hours after a rupture, a FALSE NEGATIVE result may occur do to obstruction of the rupture by the fetus or or resealing of the aminiotic sac. Limitations of the test: Bleeding, placenta previa or performing digital exams prior to sampling can lead to inaccurate test results. Method: Immunochromatography 14 WATER BROKE AND DUE ON THE URINE, CLEAN CATCH 16 In very rare cases when a sample is taken 12 hours after a rupture, a FALSE NEGATIVE result may occur do to obstruction of the rupture by the fetus or or resealing of the aminiotic sac. Limitations of the test: Bleeding, placenta previa or performing digital exams prior to sampling can lead to inaccurate test results. Method: Immunochromatography 17 Z3A.35 18 URINE, CLEAN CATCH 19 MIXED URETHRAL ESME 20 NO GROUP B STREPTOCOCCI ISOLATED 21 R35.0,N76.0,Z3A.28,F41.9 R35.0,N76.0,Z3A.28,F41.9 F33.1 R30.0 R35.0,N76.0,Z3A.28,F41.9 F33.1 R30.0 R35.0,N76.0,Z3A.28,F41.9 F33.1 R30.0 R35.0,N76.0,Z3A.28,F41.9 F33.1 R30.0 R35.0,N76.0,Z3A.28,F41.9 F33.1 R30.0 R35.0,N76.0,Z3A.28,F41.9 F33.1 R30.0 22 Performed at: - [facility] [id number] Cryptanalyst: Bennie Garcia MD, Phone: [phone] Performed at: - [facility] [address] [id number] Cryptanalyst: Amy Gottlieb MD, Phone: [phone] 24 POST GLUCOLA 25 Vitamin D deficiency has been defined by the [place] [employer] and an Endocrine Society practice guideline as a level of serum 25-OH vitamin D less than 20 ng/mL (1,2). The Endocrine Society went on to further define vitamin D insufficiency as a level between 21 and 29 ng/mL (2). 1. IOM ([place] [employer]). 2010. Dietary reference intakes for calcium and D. [place]: The National Academies Press. 2. Doreen MF, Tanya NC, Sarah SOUZA, et al. Evaluation, treatment, and prevention of vitamin D deficiency: an Endocrine Society clinical practice guideline. JCEM. 2010; 96(7):1911-30. Performed at: [address] [id number] Cryptanalyst: Amy Gottlieb MD, Phone: [phone] 26 10,000 - 50,000 CFU/mL 27 URINE, CLEAN CATCH 28 GRAM STAIN INDICATES NORMAL GENITAL ESME 29 MODERATE GR POS. BACILLI SUGGESTIVE OF LACTOBACILLUS SP. 30 NO WHITE BLOOD CELLS 31 A negative result for either C. trachomatis and/or N. gonorrhoeae does not preclued an infection because results are dependent on adequate specimen collection, absence of inhibitors, and sufficient DNA to be detected. 32 Negative <0.91 Equivocal 0.91 - 1.09 Positive >1.09 Note: Negative indicates no antibodies detected to HSV-2. Equivocal may suggest early infection. If clinically appropriate, retest at later date. Positive indicates antibodies detected to HSV-2. 33 Negative <0.91 Equivocal 0.91 - 1.09 Positive >1.09 Note: Negative indicates no antibodies detected to HSV-1. Equivocal may suggest early infection. If clinically appropriate, retest at later date. Positive indicates antibodies detected to HSV-1. Performed at: [address] [id number] Cryptanalyst: Amy Gottlieb MD, Phone: [phone] Procedures Date Code Description Status 06/08/2019 87197 Post- Care Only Completed 05/20/2019 58728 Antepartum 7 Or More Total Office Visit Completed Medical Devices Description No Information Available Encounters Type Date Location Provider Dx Diagnosis Office Visit 03/10/2019 Family Medicine Ellen Arce, J02.0 Streptococcal 3:00p Pepe Vela MD, PHD pharyngitis Z33.1 state, incidental K59.00 Constipation, unspecified Z71.6 Tobacco abuse counseling Assessments Date Code Description Provider 07/06/2019 Z39.2 Encounter for routine follow-up Ellen Arce MD, PHD 07/06/2019 R51 Headache Ellen Arce MD, PHD 07/06/2019 Z79.3 emt intermediate (current) use of hormonal Ellen Arce MD, PHD contraceptives 07/06/2019 O92.70 Unspecified disorders of Ellen Arce MD, PHD 07/06/2019 B00.1 Herpesviral vesicular dermatitis Ellen Arce MD, PHD 07/06/2019 Z72.0 Tobacco use Ellen Arce MD, PHD 07/06/2019 F41.9 Anxiety disorder, unspecified Ellen Arce MD, PHD 06/08/2019 Z39.2 Encounter for routine follow-up Ellen Arce MD, PHD 06/08/2019 F32.9 Major depressive disorder Ellen Arce MD, PHD 06/08/2019 N76.0 Acute vaginitis Ellen Arce MD, PHD 06/08/2019 R30.0 Dysuria Ellen Arce MD, PHD 06/08/2019 R35.0 Frequency of micturition Ellen Arce MD, PHD 05/20/2019 Z3A.41 41 weeks gestation of Ellen Arce MD, PHD 05/20/2019 Z34.83 Encounter for supervision of other Ellen Mccabe MD, PHD , third trimester 05/20/2019 O48.0 Post-term Ellen Arce MD, PHD 05/20/2019 Z3A.41 41 weeks gestation of Ellen Arce MD, PHD 05/17/2019 Z34.83 Encounter for supervision of other Ellen Mccabe MD, PHD , third trimester 05/17/2019 Z3A.40 40 weeks gestation of Ellen Arce MD, PHD 05/04/2019 Z34.83 Encounter for supervision of other Ellen Mccabe MD, PHD , third trimester 05/04/2019 Z3A.38 38 weeks gestation of Ellen Arce MD, PHD 04/27/2019 Z34.83 Encounter for supervision of other Ellen Mccabe MD, PHD , third trimester 04/27/2019 Z3A.37 37 weeks gestation of Ellen Arce MD, PHD 04/27/2019 R51 Headache Ellen Arce MD, PHD 04/20/2019 Z34.83 Encounter for supervision of other normal Ellen Arce MD, PHD , third trimester 04/20/2019 Z3A.36 36 weeks gestation of Ellen Arce MD, PHD 04/13/2019 Z34.83 Encounter for supervision of other normal Ellen Arce MD, PHD , third trimester 04/13/2019 Z3A.35 35 weeks gestation of Ellen Arce MD, PHD 04/13/2019 F41.9 Anxiety disorder, unspecified Ellen Arce MD, PHD 04/13/2019 F33.1 Major depressive disorder, recurrent, Ellen Arce MD, PHD moderate 04/13/2019 Z71.6 Tobacco abuse counseling Ellen Arce MD, PHD 03/30/2019 Z34.83 Encounter for supervision of other normal Ellen Arce MD, PHD , third trimester 03/30/2019 Z3A.33 Gestation period, 33 weeks Ellen Arce MD, PHD 03/30/2019 F32.9 Major depressive disorder Ellen Arce MD, PHD 03/30/2019 R51 Headache Ellen Arce MD, PHD 03/30/2019 Z23 Encounter for immunization Ellen Arce MD, PHD 03/10/2019 J02.0 Streptococcal sore throat Ellen Arce MD, PHD 03/10/2019 Z33.1 Ellen Arce MD, PHD 03/10/2019 K59.00 Chronic constipation Ellen Arce MD, PHD 03/10/2019 Z71.6 Tobacco abuse counseling Ellen Arce MD, PHD 02/24/2019 Z34.82 Encounter for suprvsn of normal , Ellen Arce MD, PHD second trimester 02/24/2019 Z3A.28 28 weeks gestation of Ellen Arce MD, PHD 02/24/2019 F41.9 Anxiety disorder, unspecified Ellen Arce MD, PHD 02/24/2019 N39.0 Urinary tract infection, site not Ellen Arce MD, PHD specified 02/24/2019 N76.0 Acute vaginitis Ellen Arce MD, PHD 02/24/2019 R30.0 Dysuria Ellen Arce MD, PHD 02/24/2019 R35.0 Frequency of micturition Ellen Arce MD, PHD 02/24/2019 Z29.13 Encounter for prophylactic Rho(D) immune Ellen Arce MD, PHD globulin 02/24/2019 Z23 Encounter for immunization Ellen Arce MD, PHD 02/24/2019 F33.1 Major depressive disorder, recurrent, Ellen Arce MD, PHD moderate Plan of Treatment 07/06/2019 - Ellen Arce MD, PHDZ39.2 Encounter for routine follow-upNew Medication:Prenaissance Plus 28-1-250 mg - 2 tab by mouth every dayFollow up:Schedule Lillie IUD procedure and follow up mood, tobacco, anxiety. - 2-4 [id number] HeadacheComments:Please get 80oz of fluids daily - to help with headache and .Z79.3 [facility] (current) use of hormonal fpbyczusukejuvQ29.70 Unspecified disorders of dmtwgttbuS40.1 Herpesviral vesicular forjfbrtmuF32.0 Tobacco useComments:both smoke and nicotine are unhealthy for your baby. We need a different way to manage anxiety. We discussed Wellbutrin to improve mood and help with not smoking as needed too.F41.9 Anxiety disorder, unspecifiedNew Medication:Buspirone HCL 10 mg - 1/2- 1 tab by mouth three times a day after meals as needed Functional Status Functional Condition Comment Date Status Independent with all ADL's Active Independent with all IADL's Active Mental Status Description No Information Available Referrals Refer to Reason for Referral Status Appt Date Shelbie Patino MD smoker in 3rd trimester RH neg, mood Closed 00/ and social difficulties. Burned bridges with OB providers in [place], no in-house staff support at [facility] at this time. PCP who's non-operative FM-OB looking to transfer her OB speciality care to [facility] and specialist due to staffing. Thank you for your help. Please call me with any questions. [address] [place] [address] [phone]
--- OUTSIDE RECORDS SUMMARY | 2019-07-27 11:21 | XMS REPORT | Continuity of Care Document ---
:1995 External Reference #:[id number] Author Name Ellen Arce MD, PHD Address [address] [place] [address], [address] [place] [id number] Care Team Providers Name Role Phone Ellen Arce MD, PHD - Family Care Team Information Police Liaison Officer [phone] Medicine Problems Active Problems Provider Date Arthralgia of the lower leg Malcom Mckee MD Onset: 06/19/2011 Aftercare, Orthopedic Other Tylor Nevarez D.O. Onset: 08/16/2014 Closed traumatic dislocation of [...] of Ellen Arce MD, PHD Onset: 04/20/2019 Social History Type Date Description Comments Sex Unknown Tobacco Use Start: Unknown Never Smoked Cigarettes Smoking Status Reviewed: 06/08/19 Never Smoked Cigarettes ETOH Use Denies alcohol use Tobacco Use Start: Unknown quit 2 weeks ago Recreational Drug Use Current Drug User Allergies, Adverse Reactions, Alerts Active Allergies Reaction Severity Comments Date No Known Drug Allergy 06/19/2011 Medications Active Medications SIG Qnty Indications Ordering Date Provider Citalopram 2 by mouth every 60tabs [place], 06/08/2019 Hydrobromide day MD Ellen, 20mg PHD Tablets Breast Pump to use every 2-4 1units [place], 05/28/2019 Misc hours as needed. MD Ellen, PHD Docusate Sodium 1 cap by mouth 60caps K59.00 [place], 03/10/2019 100mg twice a day MD Ellen, Capsules constipation PHD Silvadene apply to affected 25gm [place], 02/26/2019 1% Cream area every day as MD Ellen, needed PHD D3 Maximum Strength 1 cap by mouth 90caps F41.9 [place], 02/24/2019 every day with food MD Ellen, 5000Unit Capsules PHD B12 Fast Dissolve 1 tab by mouth 90tabs F41.9 [place], 02/24/2019 every day MD Ellen, 5000mcg Tablets PHD Dispers Nac 600 1 cap by mouth 90caps F41.9 [place], 02/24/2019 600mg Capsules three times a day MD Ellen, after meals PHD Acetaminophen Extra 2 tablets by mouth Unknown Strength every 4 hours as 500mg Tablets needed History Medications Amoxicillin 1 tab by mouth 14caps J02.0 Ellen Arce, 03/10/2019 - 500mg twice a day , PHD Unknown Capsules Immunizations CPT Code Status Date Vaccine Lot # [id number] Given 03/30/2019 Tdap injection [id number] Given 02/24/2019 Rho(D) Immune Globulin (Human) [id number] Vital Signs Date Vital Result Comment 06/08/2019 2:13pm BP Systolic 124 mmHg BP Diastolic 85 mmHg Body Temperature 98.9 F Heart Rate 91 /min Respiratory Rate 16 /min Height 67 inches 5'7" Weight 178.00 lb BMI (Body Mass Index) 27.9 kg/m2 BSA (Body Surface Area) 1.92 m2 [place] body weight in kilograms 61 kg O2 % BldC Oximetry 97 % 05/20/2019 9:47am BP Systolic 130 mmHg BP Diastolic 78 mmHg Body Temperature 98.2 F Heart Rate 89 /min Respiratory Rate 16 /min Height 67 inches 5'7" Weight 204.00 lb BMI (Body Mass Index) 31.9 kg/m2 BSA (Body Surface Area) 2.04 m2 [place] body weight in kilograms 61 kg O2 % BldC Oximetry 98 % Results Test Date Facility Test Result H/L Range Note Hemoglobin/Sam 05/24/2019 [facility] Hemoglobin 11.2 gm/dL Low 11.6-15.8 1 tocrit [address] [place] [address] [phone] Hematocrit 33.1 % Low 36.0-46.1 Laboratory test 05/23/2019 [facility] Screen NEGATIVE Normal 2 finding [address] [place] [address] [phone] CBC 05/23/2019 [facility] White Blood 18.8 K/uL High 3.1-10 [address] [place] [address] [phone] Red Blood Count 3.98 M/uL Normal 3.90-5.40 [...] Type O NEG Normal [address] [place] [address] [phone] Antibody Screen Negative Normal Negative Laboratory test 05/23/2019 [facility] Treponema Negative Negative [address] [place] [address] [place] [phone] Laboratory test 05/22/2019 [facility] Negative (Negative) 4, [address] [place] [address] Rupture [phone] Laboratory test 05/20/2019 [facility] Negative (Negative) 6, [address] [place] [address] Rupture [phone] Urine Dipstick 05/20/2019 [facility] Inhouse Ua Color yellow Yellow Ua Clarity clear Clear Ua Leuko Negative Negative Ua Nitrite negative Negative Ua Urobilinogen 0.2 0.2 - 1.0 E.U./dL Ua Protein negative Negative Ua PH 6.5 6.5-7.5 Ua Blood negative Negative Ua Specific [place] 1.015 1.010-1.030 Ua Ketones negative Negative Ua Bilirubin negative Negative Ua Glucose negative Negative Urine Dipstick 05/17/2019 [facility] Inhouse Ua Color Yellow Yellow Ua Clarity Clear Clear Ua Leuko Negative Negative Ua Nitrite Negative Negative Ua Urobilinogen 0.2 0.2 - 1.0 E.U./dL Ua Protein Negative Negative Ua PH 6.5 6.5-7.5 Ua Blood Negative Negative Ua Specific [place] 1.020 1.010-1.030 Ua Ketones Negative Negative Ua Bilirubin Negative Negative Ua Glucose Negative Negative Ua RFX Micro & Culture 05/12/2019 [facility] Urine Color YELLOW Yellow 8 II [address] [place] [address] [phone] Urine Clarity CLEAR Clear Urine Glucose - Dipstick NEGATIVE mg/dL Negative Urine Bilirubin - Dipstick NEGATIVE Negative Urine Ketone NEGATIVE mg/dL Negative Urine Specific [place] 1.010 Normal 1.010-1.030 Urine Blood NEGATIVE Negative Urine PH 6.0 Low 6.5-7.5 Urine Protein - Dipstick NEGATIVE mg/dL Negative Urine Urobilinogen - Dipstick 0.2 E.U./dL Normal 0.2-1.0 Urine Nitrite - Dipstick NEGATIVE Negative Urine Leuk Esterase NEGATIVE Negative Source: URINE, CLEAN CAT <SEE NOTE> 9 Laboratory test 05/12/2019 [facility] Negative (Negative) 10 finding [address] [place] [address] Rupture [phone] Urine Dipstick 05/04/2019 [facility] Inhouse Ua Color yellow Yellow Ua Clarity clear Clear Ua Leuko negative Negative Ua Nitrite negative Negative Ua Urobilinogen 0.2 0.2 - 1.0 E.U./dL Ua Protein negative Negative Ua PH 7.0 6.5-7.5 Ua Blood negative Negative Ua Specific [place] 1.015 1.010-1.030 Ua Ketones negative Negative Ua Bilirubin negative Negative Ua Glucose negative Negative Urine Dipstick 04/27/2019 [facility] Inhouse Ua Color Yellow Yellow Ua Clarity Clear Clear Ua Leuko Negative Negative Ua Nitrite Negative Negative Ua Urobilinogen Negative Low 0.2 - 1.0 E.U./dL Ua Protein Negative Negative Ua PH 7.5 6.5-7.5 Ua Blood Negative Negative Ua Specific [place] 1.010 1.010-1.030 Ua Ketones Negative Negative Ua Bilirubin Negative Negative Ua Glucose Negative Negative Urine Dipstick 04/20/2019 [facility] Inhouse Ua Color Yellow Yellow Ua Clarity Clear Clear Ua Leuko Negative Negative Ua Nitrite Negative Negative Ua Urobilinogen Negative Low 0.2 - 1.0 E.U./dL Ua Protein Negative Negative Ua PH 7.5 6.5-7.5 Ua Blood Negative Negative Ua Specific [place] 1.015 1.010-1.030 Ua Ketones Negative Negative Ua Bilirubin Negative Negative Ua Glucose Negative Negative Urine Dipstick 04/13/2019 [facility] Inhouse Ua Color yellow Yellow Ua Clarity clear Clear Ua Leuko negative Negative Ua Nitrite negative Negative Ua Urobilinogen 0.2 0.2 - 1.0 E.U./dL Ua Protein negative Negative Ua PH 7.0 6.5-7.5 Ua Blood negative Negative Ua Specific [place] 1.010 1.010-1.030 Ua Ketones negative Negative Ua Bilirubin negative Negative Ua Glucose negative Negative Ua RFX Micro & Culture 04/13/2019 [facility] Urine Color YELLOW Yellow [address] [place] [address] [phone] Urine Clarity CLEAR Clear Urine Glucose - Dipstick NEGATIVE mg/dL Negative Urine Bilirubin - Dipstick NEGATIVE Negative Urine Ketone NEGATIVE mg/dL Negative Urine Specific [place] <= 1.005 Low 1.010-1.030 Urine Blood NEGATIVE Negative Urine PH 6.5 Normal 6.5-7.5 Urine Protein - Dipstick NEGATIVE mg/dL Negative Urine Urobilinogen - Dipstick 0.2 E.U./dL Normal 0.2-1.0 Urine Nitrite - Dipstick NEGATIVE Negative Urine Leuk Esterase NEGATIVE Negative Source: URINE, CLEAN CAT <SEE NOTE> 12 Urine Culture 04/13/2019 [facility] Urine Culture MIXED URETHRAL F [address] <SEE NOTE> [place] [address] [phone] Quantity < 10,000 CFU/mL Laboratory test 04/13/2019 [facility] Vaginal Strep NO GROUP B [address] Screen STREP <[place] [address] NOTE> [phone] Urine Dipstick 03/30/2019 [facility] Inhouse Ua Color Yellow Yellow Ua Clarity Clear Clear Ua Leuko Negative Negative Ua Nitrite Negative Negative Ua Urobilinogen Negative Low 0.2 - 1.0 E.U./dL Ua Protein Trace Negative Ua PH 6.5 6.5-7.5 Ua Blood Negative Negative Ua Specific [place] 1.020 1.010-1.030 Ua Ketones Negative Negative Ua Bilirubin Negative Negative Ua Glucose Negative Negative Urine Dipstick 03/10/2019 [facility] Inhouse Ua Color yellow Yellow Ua Clarity clear Clear Ua Leuko negative Negative Ua Nitrite negative Negative Ua Urobilinogen 0.2 0.2 - 1.0 E.U./dL Ua Protein negative Negative Ua PH 7.5 6.5-7.5 Ua Blood negative Negative Ua Specific [place] 1.030 1.010-1.030 Ua Ketones negative Negative Ua Bilirubin negative Negative Ua Glucose negative Negative Laboratory 02/24/2019 [facility] Treponema Negative Negative 15, 16 test finding [address] [place] [address] [place] [phone] HIV Screen 4TH 02/24/2019 [facility] HIV Screen Non Non 17 Gen Reflex [address] 4th [place] [address] Generation [phone] wRfx Glucose,1 HR 02/24/2019 [facility] 1 HR 102 mg/dL -138 18 Post Glucola [address] Glucose,[place] [address] Glucola [phone] 1 Hour Urine Glucose NEGATIVE % Negative 1 Hour Urine Ketone NEGATIVE Negative Laboratory test 02/24/2019 [facility] Thyroid 1.76 Normal 0.30-4.[address] Stim uIU/[place] [address] Hormone [phone] Free T4 0.79 ng/dL Normal 0.76-1.46 Vitamin D,25-Hydroxy 30.4 ng/mL 30.0-100.0 19 Urine Culture 02/24/2019 [facility] Urine Culture URETHRAL ESME [address] [place] [address] [phone] Quantity 10,000 - 50,000 <SEE NOTE> 20 Ua RFX Micro & Culture 02/24/2019 [facility] Urine Color YELLOW Yellow II [address] [place] [address] [phone] Urine Clarity CLEAR Clear Urine Glucose - Dipstick NEGATIVE mg/dL Negative Urine Bilirubin - Dipstick NEGATIVE Negative Urine Ketone NEGATIVE mg/dL Negative Urine Specific [place] 1.015 Normal 1.010-1.030 Urine Blood NEGATIVE Negative Urine PH 7.0 Normal 6.5-7.5 Urine Protein - Dipstick NEGATIVE mg/dL Negative Urine Urobilinogen - Dipstick 0.2 E.U./dL Normal 0.2-1.0 Urine Nitrite - Dipstick NEGATIVE Negative Urine Leuk Esterase NEGATIVE Negative Source: URINE, CLEAN CAT <SEE NOTE> 21 Genital Culture W/ 02/24/2019 [facility] Gram Stain GRAM STAIN INDIC [address] <SEE NOTE> [place] [address] [phone] Gram Stain MODERATE GR POS. <SEE NOTE> 23 Gram Stain NO WHITE BLOOD C <SEE NOTE> 24 Genital Culture GENITAL ESME Chlmaydia/GC/Trichomonas 02/24/2019 [facility] Chlamydia NEGATIVE Negative PCR [address] trachomatis, [place] [address] PCR [phone] Neisseria gonorrhoeae, PCR NEGATIVE Negative 25 Trichomonas vaginalis PCR NEGATIVE Negative HSV I & II Igg 02/24/2019 [facility] HSV II,Igg,Type <0.91 0.00-0.90 26 Type Specific [address] [place] [address] [phone] HSV Type I Specific Igg 14.10 index High 0.00-0.90 27 Urine Dipstick 02/24/2019 [facility] Inhouse Ua Color negative Yellow Ua Clarity clear Clear Ua Leuko negative Negative Ua Nitrite negative Negative Ua Urobilinogen 0.2 0.2 - 1.0 E.U./dL Ua Protein negatuve Negative Ua PH 6.5 6.5-7.5 Ua Blood negative Negative Ua Specific [place] 1.015 1.010-1.030 Ua Ketones negative Negative Ua Bilirubin negative Negative Ua Glucose negative Negative 1 DELIVERY 2 Blood Type O NEG 3 Performed at: [facility] [id number] Server Programmer: Bennie Garcia MD, Phone: [phone] 4 41 WEEKS SENT BY TAWNYA ROMO 5 In very rare cases when a sample is taken 12 hours after a rupture, a FALSE NEGATIVE result may occur do to obstruction of the rupture by the fetus or or resealing of the aminiotic sac. Limitations of the test: Bleeding, placenta previa or performing digital exams prior to sampling can lead to inaccurate test results. Method: Immunochromatography 6 40 WEEKS IN LABOR 7 In very rare cases when a sample is taken 12 hours after a rupture, a FALSE NEGATIVE result may occur do to obstruction of the rupture by the fetus or or resealing of the aminiotic sac. Limitations of the test: Bleeding, placenta previa or performing digital exams prior to sampling can lead to inaccurate test results. Method: Immunochromatography 8 WATER BROKE AND DUE ON THE 9 URINE, CLEAN CATCH 10 In very rare cases when a sample is taken 12 hours after a rupture, a FALSE NEGATIVE result may occur do to obstruction of the rupture by the fetus or or resealing of the aminiotic sac. Limitations of the test: Bleeding, placenta previa or performing digital exams prior to sampling can lead to inaccurate test results. Method: Immunochromatography 11 Z3A.35 12 URINE, CLEAN CATCH 13 MIXED URETHRAL ESME 14 NO GROUP B STREPTOCOCCI ISOLATED 15 R35.0,N76.0,Z3A.28,F41.9 R35.0,N76.0,Z3A.28,F41.9 F33.1 R30.0 R35.0,N76.0,Z3A.28,F41.9 F33.1 R30.0 R35.0,N76.0,Z3A.28,F41.9 F33.1 R30.0 R35.0,N76.0,Z3A.28,F41.9 F33.1 R30.0 R35.0,N76.0,Z3A.28,F41.9 F33.1 R30.0 R35.0,N76.0,Z3A.28,F41.9 F33.1 R30.0 16 Performed at: [facility] [address] [place], [place] [id number] Server Programmer: Bennie Garcia MD, Phone: [phone] 17 Performed at: [address] [id number] Server Programmer: Amy Gottlieb MD, Phone: [phone] 18 POST GLUCOLA 19 Vitamin D deficiency has been defined by the [place] of [employer] and an Endocrine Society practice guideline as a level of serum 25-OH vitamin D less than 20 ng/mL (1,2). The Endocrine Society went on to further define vitamin D insufficiency as a level between 21 and 29 ng/mL (2). 1. IOM ([place] of [employer]). 2010. Dietary reference intakes for calcium and D. [place]: The National Academies Press. 2. Doreen MF, Tanya CRUZ, Sarah SOUZA, et al. Evaluation, treatment, and prevention of vitamin D deficiency: an Endocrine Society clinical practice guideline. JCEM. 2010; 96(7):1911-30. Performed at: [address] [id number] Server Programmer: Aym Gottlieb MD, Phone: [phone] 20 10,000 - 50,000 CFU/mL 21 URINE, CLEAN CATCH 22 GRAM STAIN INDICATES NORMAL GENITAL ESME 23 MODERATE GR POS. BACILLI SUGGESTIVE OF LACTOBACILLUS SP. 24 NO WHITE BLOOD CELLS 25 A negative result for either C. trachomatis and/or N. gonorrhoeae does not preclued an infection because results are dependent on adequate specimen collection, absence of inhibitors, and sufficient DNA to be detected. 26 Negative <0.91 Equivocal 0.91 - 1.09 Positive >1.09 Note: Negative indicates no antibodies detected to HSV-2. Equivocal may suggest early infection. If clinically appropriate, retest at later date. Positive indicates antibodies detected to HSV-2. 27 Negative <0.91 Equivocal 0.91 - 1.09 Positive >1.09 Note: Negative indicates no antibodies detected to HSV-1. Equivocal may suggest early infection. If clinically appropriate, retest at later date. Positive indicates antibodies detected to HSV-1. Performed at: [address] [id number] Server Programmer: Amy Gottlieb MD, Phone: [phone] Procedures Date Code Description Status 05/20/2019 [address]195 Antepartum 7 Or More Total Office Visit Completed Medical Devices Description No Information Available Encounters Type Date Location Provider Dx Diagnosis Office Visit 03/10/2019 Family Medicine Ellen Arce, J02.0 Streptococcal 3:00p Pepe Vela MD, PHD pharyngitis Z33.1 state, incidental K59.00 Constipation, unspecified Z71.6 Tobacco abuse counseling Assessments Date Code Description Provider 06/08/2019 Z39.2 Encounter for routine follow-up Ellen [...] Arce MD, PHD moderate Plan of Treatment Future Appointment(s):07/06/2019 1:00 pm - Ellen Arce MD, PHD at [facility]03/10/2019 - Ellen Arce MD, PHDJ02.0 Streptococcal sore throatNew Medication:Amoxicillin 500 mg - 1 tab by mouth twice a dayZ33.1 BwjxvqtxE03.00 Chronic constipationNew Medication:Docusate Sodium 100 mg - 1 cap by mouth twice a day constipationFollow up:If condition worsens.Z71.6 Tobacco abuse counseling Goals 03/10/2019 - Ellen Arce MD, PHDK59.00 Chronic constipationDrink 80oz of fluids daily - without caffeine or alcohol. Every meal should be 1/2 fruits and vegetables. Xylitol sweetener and other sugar alcohols help move bowels - xylitol sweetened lollipops from Dr. López's candies are great for kids. Also helps prevent cavities and ear infecitons. A little dark chocolate stimulates bowels to move. Functional Status Functional Condition Comment Date Status Independent with all ADL's Active Independent with all IADL's Active Mental Status Description No Information Available Referrals Refer to Reason for Referral Status Appt Date Shelbie Patino MD smoker in 3rd trimester RH neg, mood Closed 00/ and social difficulties. Burned bridges with OB providers in [place], no in-house staff support at [facility] at this time. PCP who's non-operative FM-OB looking to transfer her OB speciality care to [facility] and specialist due to staffing. Thank you for your help. Please call me with any questions. [address] [place] [address] [phone]
[2019-07-27 11:36] VITALS: BP 125/86
--- NOTE | 2019-07-27 12:33 | UC ---
Complaint Female HPI - HPI Summary HPI Summary: Patient is a 23yo female presenting with thick white discharge and vaginal odor x3 days. Patient also notes her cervix has been tender for the past few days as well. Notes tenderness when she sits down and stands up. Denies flank pain. Denies bleeding. Denies urinary symptoms. Denies itching and burning. Denies fever, chills, nausea, and vomiting. Patient is 2 months post . Normal uncomplicated vaginal delivery. Became sexually active again with a new partner two weeks ago. States she wants to be tested for STIs. Also has concern for PID but does not have a history of it. Denies having a period since giving . Notes history of recurrent yeast and BV. She also notes she is . - History Of Current Complaint Chief Complaint: UCGeneralIllness Stated Complaint: PELVIC/LOW BACK PAIN Hx Obtained From: Patient Hx Last Menstrual Period: 3 weeks ago Pain Intensity: 3 - Allergies/Home Medications Allergies/Adverse Reactions: Allergies Allergy/AdvReac Type Severity Reaction Status Date / Time No Known Allergies Allergy Verified 07/27/19 11:27 Home Medications: Home Medications Cholecalciferol (Vitamin D3) [Vitamin D3] 1,000 unit PO DAILY 07/27/19 [History Confirmed 07/27/19] Docusate CAP* [Colace Cap*] 100 mg PO DAILY 07/27/19 [History Confirmed 07/27/19 ] Ibuprofen TAB* [Motrin TAB* 800 MG] 800 mg PO ONCE 07/27/19 [History Confirmed 07/27/19] busPIRone TAB* [Buspar TAB*] 5 mg PO BID PRN 07/27/19 [History Confirmed ] PMH/Surg Hx/FS Hx/Imm Hx Previously Healthy: Yes - Surgical History Surgical History: Yes Surgery Procedure, Year, and Place: RIGHT KNEE SURGERY/REPAIR 2013, left great toe granuloma removed 08/25/14. lithotripsy; bladder 2015. uterine sx - Family History Known Family History: Positive: Unknown - Social History Alcohol Use: None Alcohol Amount: weekends Substance Use Type: None Substance Use Comment - Amount & Last Used: hx of Smoking Status (MU): Former Smoker Type: Cigarettes Amount Used/How Often: 5-7 CIGARETTES DAILY Length of Time of Smoking/Using Tobacco: 2 yrs Have You Smoked in the Last Year: No When Did the Patient Quit Smoking/Using Tobacco: 16 wks ago Household Exposure Type: Cigarettes - Immunization History Vaccination Up to Date: Yes Review of Systems All Other Systems Reviewed And Are Negative: Yes Constitutional: Positive: Negative. Negative: Fever, Chills ENT: Positive: Negative Respiratory: Positive: Negative Cardiovascular: Positive: Negative Gastrointestinal: Positive: Abdominal Pain. Negative: Vomiting, Nausea Genitourinary: Positive: Vaginal/Penile Discharge, Vaginal/Penile Tenderness. Negative: Dysuria, Hematuria, Frequency, Urgency, Vaginal/Penile Burning, Vaginal/Penile Itching, Vaginal/Penile Pain, Abnormal Bleeding Musculoskeletal: Positive: Negative Neurological: Positive: Negative Physical Exam Triage Information Reviewed: Yes Appearance: Well-Appearing Vital Signs: Initial Vital Signs Temp 98.5 F 07/27/19 11:28 Pulse 92 07/27/19 11:28 Resp 15 07/27/19 11:28 BP 125/86 07/27/19 11:28 Pulse Ox 100 07/27/19 11:28 Lab Results 07/27/19 Range/Units 12:23 POC Urine Color Yellow POC Urine Clarity Clear POC Urine pH 7.0 (5-9) POC Ur Specif [place] 1.015 (1.010-1.030) POC Urine Protein Negative (Negative) POC Ur Glucose (UA) Negative (Negative) POC Urine Ketones Negative (Negative) POC Urine Blood Negative (Negative) POC Urine Nitrite Negative (Negative) POC Urine Bilirubin Negative (Negative) POC Urine Urobilinogen 0.2 (Negative) POC U Leukocyte Esteras Negative (Negative) Vital Signs Reviewed: Yes Eyes: Positive: Conjunctiva Clear ENT: Positive: Hearing grossly normal Neck: Positive: Supple Respiratory Exam: Normal Respiratory: Positive: Lungs clear, Normal breath sounds, No respiratory distress Cardiovascular Exam: Normal Cardiovascular: Positive: RRR. Negative: Tachycardia Abdomen Description: Positive: Soft. Negative: Nontender - mild suprapubic tenderness to palpation, CVA Tenderness (R), CVA Tenderness (L), Distended, Guarding, McBurney's Point Tenderness Bowel Sounds: Positive: Present Pelvic Exam: Positive: External Exam Normal, Bimanual Exam Normal, No Cerv. Motion Tender, Blood - trace blood noted in external os, Discharge - grayish thin discharge noted on exam. Negative: Cervicitis, Lesions, Tender Adnexa, Tender Uterus, Ulcers Neurological: Positive: Alert Psychological: Positive: Age Appropriate Behavior Complaint Female Dx - Course Course Of Treatment: Patient received STI testing here. Educated her on s/s of STIs, yeast, and BV. Patient symptoms and PE findings suggestive of BV. Patient treated with Flagyl. Instructed to follow up with PCP or to attend OBGYN appt on Aug 06 if symptoms persist or worsen. Instructed to go to the ED if she experiences fever, chills, n/v, severe pain. Patient voiced understanding and agreed with the treatment plan. - Differential Dx/Diagnosis Provider Diagnosis: Vaginal discharge Discharge ED - Sign-Out/Discharge Documenting (check all that apply): Patient Departure All imaging exams completed and their final reports reviewed: No Studies - Discharge Plan Condition: Stable Disposition: HOME Prescriptions: metroNIDAZOLE [Flagyl] 500 mg PO BID #14 tablet metroNIDAZOLE [Flagyl] 500 mg PO BID #14 tablet Patient Education Materials: Bacterial Vaginosis (ED), Sexually Transmitted Diseases (ED) Referrals: Ellen Arce MD [Primary Care Provider] - If Needed Additional Instructions: As discussed, you are being treated with Flagyl for possible bacterial vaginosis. DO NOT DRINK OR CONSUME ALCOHOL IN ANY FORM WHILE TAKING THIS MEDICATION. You were tested for yeast, BV, trichomonas, gonorrhea, chlamydia, syphilis, and HIV today. You will be notified with any positive results or need for change in treatment. It is important that you attend your appointment on Aug 06 with your OBGYN. Return or go to the ED if you experience severe pain, fever, nausea, or vomiting. - Billing Disposition and Condition Condition: STABLE Disposition: Home
[2019-07-27 20:39] LABS: HIV 4th Generation Nonreactive (Nonreactive)
[2019-07-28 13:31] LABS: Chlamydia trachomatis NAA Negative (Negative); Neisseria gonorrhoeae (GC) NAA Negative (Negative)
--- NOTE | 2019-07-29 07:14 | UC ---
- Progress Note Progress Note: Vaginal the and a sample from July 27, 2019 comes back positive Gardnerella and negative Jen. Patient was treated with Flagyl so the treatment is appropriate. Nursing to call patient inform them of the results and ensure that they continue the treatment as directed and follow up if not completely improved or worse. Course/Dx - Diagnoses Provider Diagnoses: Vaginal discharge Discharge ED - Sign-Out/Discharge Documenting (check all that apply): Patient Departure All imaging exams completed and their final reports reviewed: No Studies - Discharge Plan Condition: Stable Disposition: HOME Prescriptions: metroNIDAZOLE [Flagyl] 500 mg PO BID #14 tablet metroNIDAZOLE [Flagyl] 500 mg PO BID #14 tablet Patient Education Materials: Bacterial Vaginosis (ED), Sexually Transmitted Diseases (ED) Referrals: Ellen Arce MD [Primary Care Provider] - If Needed Additional Instructions: As discussed, you are being treated with Flagyl for possible bacterial vaginosis. DO NOT DRINK OR CONSUME ALCOHOL IN ANY FORM WHILE TAKING THIS MEDICATION. You were tested for yeast, BV, trichomonas, gonorrhea, chlamydia, syphilis, and HIV today. You will be notified with any positive results or need for change in treatment. It is important that you attend your appointment on Aug 06 with your OBGYN. Return or go to the ED if you experience severe pain, fever, nausea, or vomiting. - Billing Disposition and Condition Condition: STABLE Disposition: Home
--- NOTE | 2019-08-03 07:21 | UC ---
- Progress Note Progress Note: [place] - nonreactive no change Course/Dx - Diagnoses Provider Diagnoses: Vaginal discharge Discharge ED - Sign-Out/Discharge Documenting (check all that apply): Post-Discharge Follow Up All imaging exams completed and their final reports reviewed: No Studies - Discharge Plan Condition: Stable Disposition: HOME Prescriptions: metroNIDAZOLE [Flagyl] 500 mg PO BID #14 tablet metroNIDAZOLE [Flagyl] 500 mg PO BID #14 tablet Patient Education Materials: Bacterial Vaginosis (ED), Sexually Transmitted Diseases (ED) Referrals: Ellen Arce MD [Primary Care Provider] - If Needed Additional Instructions: As discussed, you are being treated with Flagyl for possible bacterial vaginosis. DO NOT DRINK OR CONSUME ALCOHOL IN ANY FORM WHILE TAKING THIS MEDICATION. You were tested for yeast, BV, trichomonas, gonorrhea, chlamydia, syphilis, and HIV today. You will be notified with any positive results or need for change in treatment. It is important that you attend your appointment on Aug 06 with your OBGYN. Return or go to the ED if you experience severe pain, fever, nausea, or vomiting. - Billing Disposition and Condition Condition: STABLE Disposition: Home
== END 2019-07-27 12:47 | disposition home or self-care (01) ==
LOC: UCCORT 10:50
DX: Z11.3 Encounter for screening for infections with a predominantly sexual mode of transmission (principal); N89.8 Other specified noninflammatory disorders of vagina; M54.5 Low back pain; Z87.891 Personal history of nicotine dependence
CPT/HCPCS: 36415; 81003; 84702; 86780; 87389; 87480; 87491; 87510; 87591; 87661; 99212; G0463